=== PATIENT | female | born 1960 | race Caucasian/White ===

== ENCOUNTER 2022-01-26 15:14 | Emergency (ER) | payer MEDICAID, SELFPAY ==
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
[2022-01-26 15:25] VITALS: BP 180/96; PULSE 121; O2SAT 98
[2022-01-26 15:27] VITALS: BP 195/89; PULSE 116; RESP 12; TEMP 36.4; O2SAT 98; BMI 30.2
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
== END 2022-01-26 18:47 | disposition home or self-care (01) ==
PROVIDERS: Emergency Provider Student in an Organized Health Care Education/Training Program
DX: R07.89 Other chest pain (principal); R51.9 Headache, unspecified; M54.2 Cervicalgia; M54.6 Pain in thoracic spine
CPT/HCPCS: 70450; 71250; 72125; 99281; 99284